=== PATIENT | female | born 1995 | race Caucasian/White ===

== ENCOUNTER 2017-03-30 03:46 | Inpatient (IN) | payer OTHER ==
[~2017-03-30] VITALS: Ht 170.2 cm; Wt 76.7 kg
[2017-03-30 05:05] LABS: HEMATOCRIT 40.8 % (36.0-46.0); MCH 26.7 PG (29.0-34.0); MCHC 31.6 G/DL (30.0-36.0); MCV 84.5 FL (83-99); MEAN PLAT.VOLUME 9.9 uM^3 (9.5-12.4); PLATELET COUNT 306 K/uL (156-360); RBC DIS.WIDTH-CV 12.7 % (11.8-14.6); RED BLOOD COUNT 4.83 M/uL (3.80-5.20)
[2017-03-30 05:15] LABS: CHLORIDE 109 mEq/L (99-109); POTASSIUM 3.6 mEq/L (3.7-5.4); SODIUM 141 mEq/L (136-147)
[2017-03-30 05:17] LABS: GLUCOSE 104 mg/dL (70-99)
[2017-03-30 05:18] LABS: ANION GAP 9 MEQ/L (2-14)
[2017-03-30 05:20] LABS: SERUM ETHYL ALCOHOL < 10 mg/dL
[2017-03-30 05:21] LABS: GFR ESTIMATE (CALCULATED) > 59 mL/min/
[2017-03-30 05:22] LABS: UREA NITROGEN (BUN) 14 mg/dL (9-23)
[2017-03-30 05:33] LABS: QUANTITATIVE HCG < 4.0 MIU/ML
[2017-03-30 06:47] LABS: ADD MIUA? YES; BILIRUBIN NEGATIVE; BLOOD NEGATIVE; COLOR YELLOW ((YELLOW)); GLUCOSE (STRIP) NEGATIVE; KETONES NEGATIVE; LEUKOCYTES TRACE; NITRITE NEGATIVE; PROTEIN (STRIP) NEGATIVE; SPECIFIC GRAVITY 1.012 (1.000-1.030); UROBILINOGEN 0.2 MG/DL (0.2-1.0)
[2017-03-30 06:54] LABS: BACTERIA 1+ /HPF; EPITHELIAL CELLS 2+ /HPF; MUCUS TRACE /LPF; RED BLOOD CELLS 0-5 /HPF (0-5); UCUL ADDED? NO; WHITE BLOOD CELLS 0-5 /HPF (0-5)
[2017-03-30 06:57] LABS: AMPHETAMINE NEGATIVE (500 ng/mL); BARBITURATES NEGATIVE (200 ng/mL); BENZODIAZEPINES NEGATIVE (150 ng/mL); COCAINE PRESUMPTIVE POSITIVE (150 ng/mL); INTERNAL CONTROLS VALID? YES; METHADONE NEGATIVE (200 ng/mL); METHAMPHETAMINE NEGATIVE (500 ng/mL); OPIATES (MORPHINE) NEGATIVE (100 ng/mL); OXYCODONE PRESUMPTIVE POSITIVE (100 ng/mL); PHENCYCLIDINE NEGATIVE (25 ng/mL); PROPOXYPHENE NEGATIVE (300 ng/mL); THC CANNABINOIDS NEGATIVE (50 ng/mL); TRICYCLIC ANTIDEPRESSANTS NEGATIVE (300 ng/mL)
[2017-03-30 06:58] LABS: ADD MEDTOX COMMENT Y
[2017-03-30 09:33] VITALS: BP 131/82
[2017-03-30 10:45] VITALS: BP 131/82
[2017-03-30 15:18] VITALS: BP 112/55
[2017-03-31 07:41] VITALS: BP 106/59
[2017-03-31] MEDS ORDERED: SERTRALINE HCL25 MG PO (10:15)
== END 2017-03-31 12:08 | disposition home or self-care (01) | DRG 882 ==
LOC: EME 03:46 → EDOF 05:02 → 1WEST 09:28
PROVIDERS: Emergency Medicine
PROC: 0HQDXZZ Repair Right Lower Arm Skin, External Approach (ICD-10-PCS; principal; 2017-03-30)
DX: F43.20 Adjustment disorder, unspecified (principal); F32.9 Major depressive disorder, single episode, unspecified; F14.90 Cocaine use, unspecified, uncomplicated; F11.90 Opioid use, unspecified, uncomplicated; R45.851 Suicidal ideations; S51.811A Laceration without foreign body of right forearm, initial encounter; X78.8XXA Intentional self-harm by other sharp object, initial encounter; Y93.9 Activity, unspecified; Y92.9 Unspecified place or not applicable; G47.00 Insomnia, unspecified
CPT/HCPCS: 80048; 81003; 84702; 84999; 85027; 90837; 99281; 99285; G0480

== ENCOUNTER 2018-05-01 12:51 | Emergency (ER) | payer OTHER ==
[~2018-05-01] VITALS: Ht 170.2 cm; Wt 81.3 kg
[~2018-05-01 12:51] MED LIST: SERTRALINE HCL25 MG PO
[2018-05-01 14:09] LABS: HEMATOCRIT 46.5 % (36.0-46.0); HEMOGLOBIN 15.6 G/DL (11.9-15.5); MCH 27.6 PG (29.0-34.0); MCHC 33.5 G/DL (30.0-36.0); MCV 82.2 FL (83-99); PLATELET COUNT 262 K/uL (156-360); RBC DIS.WIDTH-CV 12.8 % (11.8-14.6); RBC DIS.WIDTH-SD 38.3 % (39-53); RED BLOOD COUNT 5.66 M/uL (3.80-5.20); WHITE BLOOD COUNT 16.9 K/uL (4.1-10.2)
[2018-05-01 14:19] LABS: ALBUMIN 4.5 g/dL (3.2-4.8)
[2018-05-01 14:20] LABS: CHLORIDE 108 mEq/L (99-109); POTASSIUM 4.8 mEq/L (3.7-5.4); SODIUM 140 mEq/L (136-147)
[2018-05-01 14:22] LABS: GLUCOSE 110 mg/dL (70-99); TOTAL PROTEIN 7.8 g/dL (6.4-8.3)
[2018-05-01 14:24] LABS: TOTAL BILIRUBIN 0.8 mg/dL (0.0-1.0)
[2018-05-01 14:25] LABS: ALKALINE PHOSPHATASE 67 IU/L (3-129)
[2018-05-01 14:26] LABS: CREATININE 0.8 mg/dL (0.6-1.3); GFR ESTIMATE (CALCULATED) > 59 mL/min/
[2018-05-01 14:27] LABS: AST (GOT) 18 IU/L (2-34); UREA NITROGEN (BUN) 14 mg/dL (9-23)
[2018-05-01 14:28] LABS: ALT (GPT) 13 IU/L (3-49)
[2018-05-01 14:29] LABS: LIPASE 18 U/L (1.0-51.0)
[2018-05-01 14:35] LABS: QUANTITATIVE HCG < 4.0 MIU/ML
[2018-05-01 16:14] LABS: APPEARANCE TURBID ((CLEAR)); BILIRUBIN NEGATIVE; BLOOD MODERATE; COLOR YELLOW ((YELLOW)); GLUCOSE (STRIP) NEGATIVE; KETONES 80; LEUKOCYTES NEGATIVE; NITRITE NEGATIVE; PROTEIN (STRIP) 30; SPECIFIC GRAVITY 1.026 (1.000-1.030); UROBILINOGEN 0.2 MG/DL (0.2-1.0)
[2018-05-01 16:43] LABS: UCUL ADDED? YES
[2018-05-01 16:44] LABS: AMORPHOUS URATES CRYSTALS 3+
[2018-05-01] MEDS ORDERED: ZOFRAN4 MG PO (16:49)
[2018-05-01 16:59] VITALS: BP 121/78
== END 2018-05-01 17:04 | disposition home or self-care (01) ==
LOC: EME 12:51
PROVIDERS: Physician Assistant
DX: R11.2 Nausea with vomiting, unspecified (principal); R19.7 Diarrhea, unspecified; R10.9 Unspecified abdominal pain; F17.200 Nicotine dependence, unspecified, uncomplicated
CPT/HCPCS: 80053; 81003; 83690; 84702; 85027; 87086; 99281; 99284; J1885; J2405; J7030